=== PATIENT | male | born 1985 | race Caucasian/White ===

== ENCOUNTER 2019-07-20 08:37 | Inpatient (IN) | payer BC, OTHER ==
[~2019-07-20] VITALS: Ht 170.2 cm; Wt 69.1 kg
[~2019-07-20 08:37] MED LIST: INSULIN PUMP; SYN0.088T PO
[2019-07-20] MEDS ORDERED: ondansetron/PF 4mg/2ml inj IV ONE (08:50)
[2019-07-20] MEDS ORDERED: metoclopramide 5 mg/ml inj IV ONE (08:50)
[2019-07-20] MEDS ORDERED: morphine 4 MG/ML inj SYRINge IV ONE (08:50)
[2019-07-20] MEDS ORDERED: famotidine/PF 10 mg/ml inj IV ONE (08:50)
[2019-07-20] MEDS ORDERED: insulin regular, human vial - multi-dose IV PRN ×2 (08:50→10:20)
[2019-07-20] MEDS ORDERED: potassium CL 20mEq in D5-1/2NS 1,000 ML IV PRN ×2 (09:10→10:20)
[2019-07-20 09:11] LABS: ABG BASE EXCESS -15.2 mmol/L (-2.0-3.0); ABG HCO3 9.9 mmol/L (22.0-26.0); ABG OXYGEN SATURATION 97.9 % (95-98); ABG PCO2 (T) 22.9 mmHg (35.0-45.0); ABG PH (T) 7.255 (7.350-7.450); ABG PO2 (T) 124.7 mmHg (83-108); ALLEN'S TEST Positive; FCOHb 0.7 % (0.5-1.5); FMetHb 0.1 % (0.3-1.12); FO2Hb 97.1 % (94-100)
[2019-07-20 09:13] LABS: BASOPHILS # (AUTO) 0.1 X10'3 (0-0.2); BASOPHILS % (AUTO) 0.6 % (0-1); EOSINOPHILS # (AUTO) 0.1 X10'3 (0-0.9); EOSINOPHILS % (AUTO) 0.8 % (0-6); HEMATOCRIT 42.7 % (42.0-52.0); HEMOGLOBIN 14.4 g/dl (14.0-17.9); LYMPHOCYTES # (AUTO) 1.4 X10'3 (1.1-4.8); LYMPHOCYTES % (AUTO) 12.2 % (21-51); MEAN CORPUSCULAR HEMOGLOBIN 31.2 PG (27.0-31.0); MEAN CORPUSCULAR HGB CONC 33.8 g/dL (33.0-36.5); MEAN CORPUSCULAR VOLUME 92.4 FL (78-98); MEAN PLATELET VOLUME 10.6 FL (7.4-10.4); MONOCYTES # (AUTO) 0.2 X10'3 (0-0.9); NEUTROPHILS # (AUTO) 9.8 X10'3 (1.8-7.7); NEUTROPHILS % (AUTO) 84.4 % (42-75); PLATELET COUNT 215 X10'3 (140-440); RED BLOOD COUNT 4.61 X10'6 (4.70-6.10); RED CELL DISTRIBUTION WIDTH 12.6 % (11.5-14.5); WHITE BLOOD COUNT 11.6 X10'3 (4.5-11.0)
[2019-07-20] MEDS: normal saline 1000ml 1,000 ML IV SCH ×10 (09:19→20:50)
[2019-07-20] MEDS: insulin regular, human 10 units/0.1 ml syringe IV PRN ×2 (09:19→13:01)
[2019-07-20] MEDS ORDERED: insulin regular, DKA only 100 UNIT in normal saline 100ml IV soln 100 ML IV SCH ×4 (09:30→10:20)
[2019-07-20 09:32] LABS: ALANINE AMINOTRANSFERASE 39 U/L (12-78); ALBUMIN 4.1 G/DL (3.4-5.0); ALBUMIN/GLOBULIN RATIO 1.4 (1.1-1.5); ALKALINE PHOSPHATASE 118 IU/L (46-116); ANION GAP 23 (8-16); ASPARTATE AMINO TRANSFERASE 29 U/L (10-37); BILIRUBIN,TOTAL 0.8 MG/DL (0.1-1.0); BLOOD UREA NITROGEN 29 MG/DL (7-18); BUN/CREATININE RATIO 20.3 (5.4-32.0); CALCIUM 8.6 MG/DL (8.5-10.1); CHLORIDE 94 MMOL/L (99-107); CREATININE 1.43 MG/DL (0.60-1.10); LIPASE 57 U/L (73-393); POTASSIUM 4.7 MMOL/L (3.5-5.1); SODIUM 130 MMOL/L (135-145); TOTAL PROTEIN 7.1 G/DL (6.4-8.2); eGFR 57 ML/MIN
[2019-07-20 09:36] LABS: GLUCOSE 500 MG/DL (70-104); TOTAL CARBON DIOXIDE 13.3 MMOL/L (24-32)
[2019-07-20 09:49] LABS: CLARITY,URINE CLEAR (Clear); COLOR,URINE STRAW (Yellow); GLUCOSE, URINE >=1000 mg/dl (Neg); KETONES,URINE >=80 mg/dl (Neg); LEUKOCYTE ESTERASE ,URINE NEGATIVE (Neg); NITRITES, URINE NEGATIVE (Neg); OCCULT BLOOD,URINE NEGATIVE (Neg); PH,URINE 5.5 (4.8-8.0); PROTEIN,URINE NEGATIVE (Neg); UROBILINOGEN,URINE 0.2 E.U/dL (0.2-1.0)
[2019-07-20 09:50] LABS: UA COLLECTION TYPE URINAL
[2019-07-20] MEDS ORDERED: SYN0.088T PO (10:04)
[2019-07-20 10:10] LABS: BACTERIA,URINE NONE SEEN /HPF (Neg); MUCUS STRANDS NONE SEEN /LPF (Neg); RBC,URINE 0-2 /HPF (0-2); SQUAMOUS EPITHELIAL CELL,UR NONE SEEN /LPF (FEW); WBC,URINE NONE SEEN /HPF (0-4)
[2019-07-20] MEDS ORDERED: magnesium 4gm in 100ml NS 100 ML IV PRN (10:15)
[2019-07-20] MEDS ORDERED: magnesium 2GM in 50ml NS 50 ML IV PRN (10:15)
[2019-07-20] MEDS ORDERED: magnesium Cl slow-release 64mg tablet PO PRN (10:15)
[2019-07-20] MEDS ORDERED: ondansetron/PF 4mg/2ml inj IV PRN (10:15)
[2019-07-20] MEDS ORDERED: potassium CL 10mEq/100ml bag 100 ML IV PRN ×4 (10:15→10:20)
[2019-07-20] MEDS ORDERED: potassium Cl 20 mEq SR tablet PO PRN ×4 (10:15→10:20)
[2019-07-20] MEDS ORDERED: sodium bicarbonate (8.4%) inj. 100 MEQ in dextrose 5% water 500ml 500 ML IV PRN (10:20)
[2019-07-20] MEDS ORDERED: sodium bicarbonate (8.4%) inj. 50 MEQ in dextrose 5% water 500ml 250 ML IV PRN (10:20)
[2019-07-20] MEDS ORDERED: sodium phosphate inj. 15 MMOL in dextrose 5%-water 150 ML IV PRN (10:20)
[2019-07-20] MEDS ORDERED: normal saline 1000ml 1,000 ML IV SCH (10:20)
[2019-07-20] MEDS ORDERED: sodium phosphate inj. 30 MMOL in dextrose 5%-water 250 ML IV PRN (10:20)
[2019-07-20] MEDS ORDERED: Neutra Phos packet PO PRN (10:20)
[2019-07-20 10:59] LABS: ALBUMIN 3.4 G/DL (3.4-5.0); CALCIUM 7.7 MG/DL (8.5-10.1); CHLORIDE 103 MMOL/L (99-107); CREATININE 1.18 MG/DL (0.60-1.10); GLUCOSE 390 MG/DL (70-104); POTASSIUM 4.1 MMOL/L (3.5-5.1); eGFR 72 ML/MIN
[2019-07-20 11:04] LABS: ANION GAP 18 (8-16); BLOOD UREA NITROGEN 29 MG/DL (7-18); BUN/CREATININE RATIO 24.6 (5.4-32.0); SODIUM 135 MMOL/L (135-145)
[2019-07-20 11:05] LABS: TOTAL CARBON DIOXIDE 13.9 MMOL/L (24-32)
--- NOTE | 2019-07-20 14:32 | NUR ---
Pt. arrived and made comfortable. All questions answered and skin check complete. Insulin running @ 10u and D5 with K @ 150. Pt. does not have any complaints.
[2019-07-20 15:00] VITALS: BP 100/60
[2019-07-20 15:17] LABS: ALBUMIN 3.2 G/DL (3.4-5.0); ANION GAP 11 (8-16); BLOOD UREA NITROGEN 25 MG/DL (7-18); BUN/CREATININE RATIO 20.3 (5.4-32.0); CALCIUM 7.8 MG/DL (8.5-10.1); CHLORIDE 107 MMOL/L (99-107); CREATININE 1.23 MG/DL (0.60-1.10); GLUCOSE 211 MG/DL (70-104); PHOSPHORUS 2.8 MG/DL (2.3-4.5); POTASSIUM 3.7 MMOL/L (3.5-5.1); SODIUM 138 MMOL/L (135-145); TOTAL CARBON DIOXIDE 20.2 MMOL/L (24-32); eGFR 68 ML/MIN
--- NOTE | 2019-07-20 17:28 | NUR ---
PAGER ID: [phone] MESSAGE: [id number]. Labs looking a lot better. Do you want to try and let him eat? [id number]
--- NOTE | 2019-07-20 18:15 | NUR ---
Patient in room PCU 3012. I have received report from Gordon BA and had the opportunity to ask questions and assume patient care. GORDON WAITING FOR CALL BACK FROM MD REGARDING NEXT STEP FOR PATIENT, HE IS READY TO EAT. IVF RUNNING AT 200. GORDON CHECKED BLOOD SUGAR AT PT REQUEST, 71. (HAS NOT DOWNLOADED OF TIME OF NOTE ENTRY).
--- NOTE | 2019-07-20 18:23 | NUR ---
Problems reprioritized. Patient report given, questions answered & plan of care reviewed with Marybeth BA.
[2019-07-20 19:00] VITALS: BP 103/70
[2019-07-20 19:10] LABS: ALBUMIN 3.6 G/DL (3.4-5.0); ANION GAP 11 (8-16); BLOOD UREA NITROGEN 20 MG/DL (7-18); BUN/CREATININE RATIO 17.1 (5.4-32.0); CALCIUM 8.1 MG/DL (8.5-10.1); CHLORIDE 107 MMOL/L (99-107); CREATININE 1.17 MG/DL (0.60-1.10); GLUCOSE 106 MG/DL (70-104); POTASSIUM 3.9 MMOL/L (3.5-5.1); SODIUM 139 MMOL/L (135-145); TOTAL CARBON DIOXIDE 20.8 MMOL/L (24-32); eGFR 72 ML/MIN
[2019-07-20] MEDS ORDERED: insulin glargine (Lantus) pen - multi-dose SQ ONE (19:50)
[2019-07-20] MEDS: K and/or MAG REPLACEMENT MC SCH (20:00)
[2019-07-20] MEDS ORDERED: K and/or MAG REPLACEMENT MC SCH (20:00)
[2019-07-20] MEDS ORDERED: glucagon, human recombinant 1mg kit SUBCUT PRN (20:25)
[2019-07-20] MEDS ORDERED: dextrose ORAL solution 15 GM/59 ML bottle PO PRN ×2 (20:25)
[2019-07-20] MEDS ORDERED: dextrose 50%-water 50ml dispensing syringe IV PRN ×2 (20:25)
[2019-07-20] MEDS: insulin Lispro (HumaLOG) vial - multi-dose SQ SCH ×3 (21:18→23:24)
[2019-07-20 22:49] LABS: HEMOGLOBIN A1C 11.4 % (4.5-6.2)
[2019-07-20 23:00] VITALS: BP 111/67
[2019-07-21] MEDS: normal saline 1000ml 1,000 ML IV SCH ×3 (00:50→12:06)
[2019-07-21 03:00] VITALS: BP 114/77
[2019-07-21 05:17] LABS: BASOPHILS % (AUTO) 0.3 % (0-1); EOSINOPHILS # (AUTO) 0.2 X10'3 (0-0.9); EOSINOPHILS % (AUTO) 1.7 % (0-6); HEMATOCRIT 34.1 % (42.0-52.0); HEMOGLOBIN 11.9 g/dl (14.0-17.9); LYMPHOCYTES # (AUTO) 2.7 X10'3 (1.1-4.8); LYMPHOCYTES % (AUTO) 22.6 % (21-51); MEAN CORPUSCULAR HEMOGLOBIN 31.8 PG (27.0-31.0); MEAN CORPUSCULAR HGB CONC 34.8 g/dL (33.0-36.5); MEAN CORPUSCULAR VOLUME 91.3 FL (78-98); MEAN PLATELET VOLUME 10.1 FL (7.4-10.4); MONOCYTES # (AUTO) 0.6 X10'3 (0-0.9); MONOCYTES % (AUTO) 5.2 % (2-12); NEUTROPHILS # (AUTO) 8.5 X10'3 (1.8-7.7); NEUTROPHILS % (AUTO) 70.2 % (42-75); PLATELET COUNT 198 X10'3 (140-440); RED BLOOD COUNT 3.74 X10'6 (4.70-6.10); RED CELL DISTRIBUTION WIDTH 12.6 % (11.5-14.5); WHITE BLOOD COUNT 12.1 X10'3 (4.5-11.0)
[2019-07-21 05:30] LABS: ALBUMIN 2.8 G/DL (3.4-5.0); ANION GAP 9 (8-16); BLOOD UREA NITROGEN 15 MG/DL (7-18); CALCIUM 7.6 MG/DL (8.5-10.1); CHLORIDE 109 MMOL/L (99-107); GLUCOSE 215 MG/DL (70-104); MAGNESIUM 1.7 MG/DL (1.5-2.4); PHOSPHORUS 2.9 MG/DL (2.3-4.5); SODIUM 140 MMOL/L (135-145); TOTAL CARBON DIOXIDE 22.4 MMOL/L (24-32); eGFR 87 ML/MIN
--- NOTE | 2019-07-21 06:21 | NUR ---
Problems reprioritized. Patient report given, questions answered & plan of care reviewed with Magda AND Gordon rnS.
--- NOTE | 2019-07-21 06:40 | NUR ---
Patient in room PCU 3012. I have received report from Karina BA and had the opportunity to ask questions and assume patient care, patient is stable and resting at transfer.
--- NOTE | 2019-07-21 06:45 | NUR ---
Patient in room PCU 3012. I have received report from Karina BA and had the opportunity to ask questions and assume patient care. Patient awake and sitting at side of bed. All immediate needs met at this time.
[2019-07-21 07:00] VITALS: BP 112/78
[2019-07-21] MEDS: K and/or MAG REPLACEMENT MC SCH (08:00)
[2019-07-21] MEDS: insulin Lispro (HumaLOG) vial - multi-dose SQ SCH ×2 (10:31→13:39)
[2019-07-21 11:00] VITALS: BP 124/84
[2019-07-21] MEDS ORDERED: levoTHYROXINE 100mcg tablet PO SCH (12:40)
--- NOTE | 2019-07-21 14:35 | NUR ---
DM Consult: Pt admitted for DKA with A1c of 11.4. RD internet site designer visited pt at bedside and provided DM education with referral to CDE course and RD contact information. Pt reports A1c normally 10.5 or 11 and that elevated A1c is due to malfunctioning insulin pump. Pt states that he has a new insulin pump that he is going to get set up this week as he does not wish for DKA to occur again. Pt encouraged again to go to CDE course to get information to get his insulin pump set up. Pt reports gluten and lactose intolerance, not an allergy, however, he does feel ill if he eats too much gluten or lactose and wishes to stay away from it. Will continue to monitor. Addendum: 07/21/19 at 1436 by Wing Baldev FU Amended: Links added. Addendum: 07/21/19 at [address] RD agree with internet site designer note
--- NOTE | 2019-07-21 15:30 | NUR ---
Patient stable for discharge per MD orders. All discharge instructions reviewed with patient and all questions answered. Patient to follow up with PCP in 1 week. No new prescriptions for patient at this time. Patient to continue home medications per discharge. PIV x 2 discontinued and cannulas intact. Telemetry monitoring discontinued. All patient belongings packed up and sent with patient. Patient accompanied to lobby by RN. Patient will be picked up in lobby by mother.
== END 2019-07-21 15:30 | disposition home or self-care (01) | DRG 638 ==
LOC: ER 08:38 → ED HOLD 10:14 → PCU 3S 14:18
PROVIDERS: ADMIT Internal Medicine; ATTEND Internal Medicine
DX: E10.10 Type 1 diabetes mellitus with ketoacidosis without coma (principal); E87.1 Hypo-osmolality and hyponatremia; N17.9 Acute kidney failure, unspecified; E03.9 Hypothyroidism, unspecified; Z96.41 Presence of insulin pump (external) (internal); I95.9 Hypotension, unspecified; Z79.4 Long term (current) use of insulin; Z91.19 Patient's noncompliance with other medical treatment and regimen; Z88.8 Allergy status to other drugs, medicaments and biological substances
CPT/HCPCS: 36415; 36600; 80048; 80053; 81001; 82803; 82948; 83036; 83605; 83690; 83735; 84100; 85018; 85025; 87081; 93005; 96374; 96375; 99291; G0378; J1815; J2405; J2765; J3480; J3490; J7030

== ENCOUNTER 2021-05-08 01:27 | Emergency (ER) | payer OTHER ==
[~2021-05-08] VITALS: Ht 170.2 cm; Wt 71.4 kg
[2021-05-08 02:02] VITALS: BP 126/81
== END 2021-05-08 03:43 | disposition left against medical advice (07) ==
LOC: ER 01:27
DX: H92.01 Otalgia, right ear (principal); Z53.21 Procedure and treatment not carried out due to patient leaving prior to being seen by health care provider

== ENCOUNTER 2023-01-08 10:02 | Inpatient (IN) | payer OTHER ==
[2023-01-08] VITALS (9 sets, daily range): BP systolic 120–167; BP diastolic 78–94
[~2023-01-08] VITALS: Ht 170.2 cm; Wt 69.6 kg
[2023-01-08] MEDS ORDERED: metoclopramide 5 mg/ml inj IV ONE (10:10)
[2023-01-08] MEDS ORDERED: pantoprazole 40mg IV 80 MG in normal saline 100ml IV soln 100 ML IV ONE (10:10)
[2023-01-08] MEDS ORDERED: CefTRIAXone 2gm/D5W 50ml BAG 50 ML IV ONE (10:10)
[2023-01-08] MEDS ORDERED: normal saline 1000ML IV soln IV ONE (10:10)
[2023-01-08 10:43] LABS: BASOPHILS % (AUTO) 0.5 % (0-1); EOSINOPHILS # (AUTO) 0.3 X10'3 (0-0.9); LYMPHOCYTES # (AUTO) 1.1 X10'3 (1.1-4.8); LYMPHOCYTES % (AUTO) 15.2 % (21-51); MEAN CORPUSCULAR HEMOGLOBIN 32.1 PG (27.0-31.0); MEAN CORPUSCULAR HGB CONC 34.3 g/dL (33.0-36.5); MEAN CORPUSCULAR VOLUME 93.6 FL (78-98); MEAN PLATELET VOLUME 9.9 FL (7.4-10.4); MONOCYTES # (AUTO) 0.4 X10'3 (0-0.9); MONOCYTES % (AUTO) 5.9 % (2-12); NEUTROPHILS # (AUTO) 5.3 X10'3 (1.8-7.7); NEUTROPHILS % (AUTO) 74.4 % (42-75); PLATELET COUNT 138 X10'3 (140-440); RED BLOOD COUNT 1.89 X10'6 (4.70-6.10); RED CELL DISTRIBUTION WIDTH 13.4 % (11.5-14.5); WHITE BLOOD COUNT 7.2 X10'3 (4.5-11.0)
[2023-01-08 10:46] LABS: HEMATOCRIT 17.7 % (42.0-52.0); HEMOGLOBIN 6.1 g/dl (14.0-17.9)
[2023-01-08 11:00] LABS: BASOPHILS % (AUTO) 0.7 % (0-1); EOSINOPHILS # (AUTO) 0.3 X10'3 (0-0.9); EOSINOPHILS % (AUTO) 4.5 % (0-6); LYMPHOCYTES # (AUTO) 0.9 X10'3 (1.1-4.8); LYMPHOCYTES % (AUTO) 14.7 % (21-51); MEAN CORPUSCULAR HEMOGLOBIN 32.1 PG (27.0-31.0); MEAN CORPUSCULAR HGB CONC 34.3 g/dL (33.0-36.5); MEAN CORPUSCULAR VOLUME 93.5 FL (78-98); MEAN PLATELET VOLUME 10.2 FL (7.4-10.4); MONOCYTES # (AUTO) 0.4 X10'3 (0-0.9); NEUTROPHILS # (AUTO) 4.7 X10'3 (1.8-7.7); NEUTROPHILS % (AUTO) 74.1 % (42-75); PLATELET COUNT 130 X10'3 (140-440); RED BLOOD COUNT 1.76 X10'6 (4.70-6.10); RED CELL DISTRIBUTION WIDTH 13.5 % (11.5-14.5); WHITE BLOOD COUNT 6.4 X10'3 (4.5-11.0)
[2023-01-08 11:00] LABS: ANION GAP 12 (8-16); CHLORIDE 113 MMOL/L (99-107); POTASSIUM 4.4 MMOL/L (3.5-5.1); SODIUM 145 MMOL/L (135-145)
[2023-01-08 11:07] LABS: HEMOGLOBIN 5.7 g/dl (14.0-17.9)
[2023-01-08 11:08] LABS: HEMATOCRIT 16.8 % (42.0-52.0)
[2023-01-08 11:11] LABS: ALANINE AMINOTRANSFERASE 32 U/L (12-78); ALBUMIN 3.1 G/DL (3.4-5.0); ALBUMIN/GLOBULIN RATIO 1.1 (1.1-1.5); ALKALINE PHOSPHATASE 100 IU/L (46-116); ASPARTATE AMINO TRANSFERASE 30 U/L (10-37); BILIRUBIN,TOTAL 0.4 MG/DL (0.1-1.0); BLOOD UREA NITROGEN 29 MG/DL (7-18); BUN/CREATININE RATIO 11.5 (10.0-20.0); CALCIUM 8.2 MG/DL (8.5-10.1); CREATININE 2.53 MG/DL (0.60-1.10); GLUCOSE 98 MG/DL (70-104); eGFR 29 ML/MIN
[2023-01-08 11:28] LABS: CLARITY,URINE CLEAR (Clear); COLOR,URINE YELLOW (Yellow); GLUCOSE, URINE 100 mg/dl (Neg); KETONES,URINE NEGATIVE (Neg); LEUKOCYTE ESTERASE ,URINE NEGATIVE (Neg); NITRITES, URINE NEGATIVE (Neg); OCCULT BLOOD,URINE SMALL (Neg); PH,URINE 5.5 (4.8-8.0); PROTEIN,URINE >=300 mg/dl (Neg); UROBILINOGEN,URINE 0.2 E.U/dL (0.2-1.0)
[2023-01-08 11:31] LABS: UA COLLECTION TYPE CLN CATCH MIDSTREAM
[2023-01-08 11:41] LABS: BACTERIA,URINE NONE SEEN /HPF (Neg); MUCUS STRANDS FEW /LPF (Neg); RBC,URINE 0-2 /HPF (0-2); SPERM FEW /HPF (NEGATIVE); SQUAMOUS EPITHELIAL CELL,UR FEW /LPF (FEW); WBC,URINE 0-4 /HPF (0-4)
[2023-01-08] MEDS: pantoprazole 40MG/NS 100ML BAG 100 ML IV SCH ×3 (11:56→21:10)
[2023-01-08] MEDS ORDERED: potassium Cl 20 mEq SR tablet PO PRN ×2 (12:50)
[2023-01-08] MEDS ORDERED: insulin Lispro (HumaLOG) vial - multi-dose SQ SCH (12:50)
[2023-01-08] MEDS ORDERED: acetaminophen 650mg rectal suppository RC PRN (12:50)
[2023-01-08] MEDS ORDERED: diphenhydrAMINE 25mg capsule PO PRN (12:50)
[2023-01-08] MEDS ORDERED: bisacodyl 10mg suppository rectal RC PRN (12:50)
[2023-01-08] MEDS ORDERED: HYDROcodone/acetaminophen 5mg/325mg tablet PO PRN (12:50)
[2023-01-08] MEDS ORDERED: ondansetron 4mg rapidly disintigrating tab PO PRN (12:50)
[2023-01-08] MEDS ORDERED: potassium Cl 40MEQ/1/2NS 520ml 520 ML IV PRN (12:50)
[2023-01-08] MEDS ORDERED: mag hydrox/Alum hydrox/simeth 30ml oral suspension PO PRN (12:50)
[2023-01-08] MEDS ORDERED: HYDROcodone/acetaminophen 10/325mg tab PO PRN (12:50)
[2023-01-08] MEDS ORDERED: acetaminophen 325mg tablet PO PRN ×2 (12:50)
[2023-01-08] MEDS ORDERED: MESSAGE TO PHARMACY PO ONE (12:50)
[2023-01-08] MEDS ORDERED: dextrose 50%-water 50ml dispensing syringe IV PRN ×2 (12:50)
[2023-01-08] MEDS ORDERED: magnesium Cl slow-release 64mg tablet PO PRN (12:50)
[2023-01-08] MEDS ORDERED: pantoprazole 40MG/NS 100ML BAG 100 ML IV SCH (12:50)
[2023-01-08] MEDS ORDERED: DEXTROSE 15 GM of carb/4 tabs (each vial/BOTTLE has 4 tablets) PO PRN ×2 (12:50)
[2023-01-08] MEDS ORDERED: ondansetron/PF 4mg/2ml inj IV PRN (12:50)
[2023-01-08] MEDS ORDERED: glucagon, human recombinant 1mg kit SUBCUT PRN (12:50)
[2023-01-08] MEDS ORDERED: magnesium 4gm in 100ml NS 100 ML IV PRN (12:50)
[2023-01-08] MEDS ORDERED: morphine 2 MG/ML inj. syringe IV PRN ×2 (12:50)
[2023-01-08] MEDS ORDERED: magnesium 2GM in 50ml NS 50 ML IV PRN (12:50)
[2023-01-08] MEDS ORDERED: magnesium hydroxide 30ml (MOM) UD suspension PO PRN (12:50)
[2023-01-08] MEDS: sodium chloride 0.45% 1,000 ML IV SCH ×2 (12:50→23:10)
[2023-01-08] MEDS ORDERED: HYDR25TA4 PO (13:06)
[2023-01-08] MEDS ORDERED: INSU100C4 SUBCUT (13:06)
[2023-01-08 13:25] LABS: HEMOGLOBIN A1C 6.1 % (4.5-6.2)
[2023-01-08 13:31] LABS: CHOL/HDL RATIO 3.9 (0.00-4.99); CHOLESTEROL 135 MG/DL (0-200); HDL CHOLESTEROL 35 MG/DL (35-60); LDL CHOLESTEROL 73 MG/DL (50-100); TRIGLYCERIDES 80 MG/DL (20-135)
--- NOTE | 2023-01-08 15:27 | NUR ---
Second unit of 0- blood started to transfuse.
[2023-01-08] MEDS ORDERED: HYDR12.55 PO (16:07)
[2023-01-08] MEDS ORDERED: LEVO200T8 PO (16:07)
--- NOTE | 2023-01-08 17:02 | NUR ---
insulin pump disconnected and removed by patient .
--- NOTE | 2023-01-08 18:30 | NUR ---
Problems reprioritized. Patient report given, questions answered & plan of care reviewed with Lena BA. Patient is resting comfortably in bed in no acute distress.
--- NOTE | 2023-01-08 18:30 | NUR ---
Received report from primary care nurse Marisol BA. Patient is awake and alert on room air. In no apparent distress. Call light and items of frequent use within reach. Will continue to monitor for changes.
[2023-01-08] MEDS ORDERED: hydrALAZINE 20mg/ml inj. IV PRN (19:55)
[2023-01-08] MEDS: K and/or MAG REPLACEMENT MC SCH (20:00)
[2023-01-08] MEDS: docusate sod 100mg capsule PO SCH (20:00)
--- NOTE | 2023-01-08 20:00 | NUR ---
Patient reporting he wants to keep his insulin pump. Obtained agreement and phoned MD Villarreal. Obtained orders.
[2023-01-08] MEDS: insulin glargine (Lantus) pen - multi-dose SQ SCH (21:00)
--- NOTE | 2023-01-08 21:19 | NUR ---
patient self administered 2units with insulin pump Addendum: 01/08/23 at 2119 by Lena Palma RN Amended: Links added.
[2023-01-08 21:31] LABS: HEMATOCRIT 23.9 % (42.0-52.0); HEMOGLOBIN 8.1 g/dl (14.0-17.9); MEAN CORPUSCULAR HEMOGLOBIN 31.2 PG (27.0-31.0); MEAN CORPUSCULAR VOLUME 91.5 FL (78-98); MEAN PLATELET VOLUME 9.8 FL (7.4-10.4); PLATELET COUNT 137 X10'3 (140-440); RED BLOOD COUNT 2.61 X10'6 (4.70-6.10); RED CELL DISTRIBUTION WIDTH 14.2 % (11.5-14.5); WHITE BLOOD COUNT 9.5 X10'3 (4.5-11.0)
[2023-01-09] VITALS (9 sets, daily range): BP systolic 122–176; BP diastolic 78–110
[2023-01-09] MEDS: pantoprazole 40MG/NS 100ML BAG 100 ML IV SCH ×4 (01:51→16:00)
--- NOTE | 2023-01-09 06:32 | NUR ---
Reported off to Mary Ellen BA. Patient is awake and alert playing on his phone. In no apparent distress on room air. Call light and items of frequent use within reach.
[2023-01-09 07:06] LABS: BASOPHILS # (AUTO) 0.1 X10'3 (0-0.2); BASOPHILS % (AUTO) 0.6 % (0-1); EOSINOPHILS # (AUTO) 0.2 X10'3 (0-0.9); EOSINOPHILS % (AUTO) 2.6 % (0-6); HEMATOCRIT 22.1 % (42.0-52.0); HEMOGLOBIN 7.6 g/dl (14.0-17.9); LYMPHOCYTES # (AUTO) 1.1 X10'3 (1.1-4.8); LYMPHOCYTES % (AUTO) 12.6 % (21-51); MEAN CORPUSCULAR HEMOGLOBIN 31.6 PG (27.0-31.0); MEAN CORPUSCULAR HGB CONC 34.4 g/dL (33.0-36.5); MEAN CORPUSCULAR VOLUME 91.7 FL (78-98); MEAN PLATELET VOLUME 9.8 FL (7.4-10.4); MONOCYTES # (AUTO) 0.4 X10'3 (0-0.9); MONOCYTES % (AUTO) 4.8 % (2-12); NEUTROPHILS # (AUTO) 6.8 X10'3 (1.8-7.7); NEUTROPHILS % (AUTO) 79.4 % (42-75); PLATELET COUNT 129 X10'3 (140-440); RED BLOOD COUNT 2.41 X10'6 (4.70-6.10); RED CELL DISTRIBUTION WIDTH 14.2 % (11.5-14.5); WHITE BLOOD COUNT 8.5 X10'3 (4.5-11.0)
[2023-01-09 07:23] LABS: ALANINE AMINOTRANSFERASE 23 U/L (12-78); ALBUMIN 2.6 G/DL (3.4-5.0); ALKALINE PHOSPHATASE 88 IU/L (46-116); ANION GAP 12 (8-16); ASPARTATE AMINO TRANSFERASE 23 U/L (10-37); BILIRUBIN,TOTAL 0.5 MG/DL (0.1-1.0); BLOOD UREA NITROGEN 22 MG/DL (7-18); BUN/CREATININE RATIO 10.2 (10.0-20.0); CALCIUM 7.7 MG/DL (8.5-10.1); CHLORIDE 114 MMOL/L (99-107); CHOL/HDL RATIO 3.8 (0.00-4.99); CHOLESTEROL 117 MG/DL (0-200); CREATININE 2.15 MG/DL (0.60-1.10); GLUCOSE 207 MG/DL (70-104); HDL CHOLESTEROL 31 MG/DL (35-60); LDL CHOLESTEROL 64 MG/DL (50-100); MAGNESIUM 1.7 MG/DL (1.5-2.4); PHOSPHORUS 3.5 MG/DL (2.3-4.5); POTASSIUM 4.4 MMOL/L (3.5-5.1); SODIUM 143 MMOL/L (135-145); TOTAL CARBON DIOXIDE 16.7 MMOL/L (24-32); TOTAL PROTEIN 5.2 G/DL (6.4-8.2); TRIGLYCERIDES 101 MG/DL (20-135); eGFR 35 ML/MIN
[2023-01-09] MEDS: sodium chloride 0.45% 1,000 ML IV SCH (07:55)
[2023-01-09] MEDS: K and/or MAG REPLACEMENT MC SCH ×2 (08:00→20:14)
[2023-01-09] MEDS: docusate sod 100mg capsule PO SCH ×2 (08:00→20:00)
[2023-01-09] MEDS ORDERED: fentaNYL/PF 50MCG/1 ML 2ML syringe ONE (08:36)
[2023-01-09] MEDS ORDERED: MIDAZolam 1 MG/ML 5ML VIAL ONE (08:37)
[2023-01-09] MEDS ORDERED: LIDOcaine Viscous 15ml cup ONE (08:37)
--- NOTE | 2023-01-09 08:45 | NUR ---
DM consult: Per EMR pt with T1DM, well controlled with A1c 6.1% which is down from 11.4% 07/20/19 per EMR. 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 DM education not warranted at this time. Will continue to follow. Addendum: 01/09/23 at [address] Amended: Links added.
[2023-01-09] MEDS ORDERED: hydrALAZINE 20mg/ml inj. IV ONE (15:10)
[2023-01-09] MEDS ORDERED: hydrALAZINE 20mg/ml inj. IV PRN (15:10)
[2023-01-09] MEDS ORDERED: PEG 3350/Na sulf,bicarb,Cl/KCl oral sol 4 liter bottle PO ONE (15:15)
[2023-01-09] MEDS: amLODIPine 5mg tablet PO SCH (15:36)
[2023-01-09] MEDS: normal saline 1000ml 1,000 ML IV SCH (15:36)
[2023-01-09 15:48] LABS: HEMATOCRIT 22.2 % (42.0-52.0); HEMOGLOBIN 7.7 g/dl (14.0-17.9); MEAN CORPUSCULAR HEMOGLOBIN 31.9 PG (27.0-31.0); MEAN CORPUSCULAR HGB CONC 34.7 g/dL (33.0-36.5); MEAN CORPUSCULAR VOLUME 91.7 FL (78-98); MEAN PLATELET VOLUME 9.6 FL (7.4-10.4); PLATELET COUNT 128 X10'3 (140-440); RED BLOOD COUNT 2.42 X10'6 (4.70-6.10); RED CELL DISTRIBUTION WIDTH 13.9 % (11.5-14.5); WHITE BLOOD COUNT 7.7 X10'3 (4.5-11.0)
--- NOTE | 2023-01-09 18:52 | NUR ---
Problems reprioritized. Patient report given, questions answered & plan of care reviewed with JESENIA MARTINEZ.
[2023-01-09] MEDS: insulin glargine (Lantus) pen - multi-dose SQ SCH (20:15)
--- NOTE | 2023-01-09 22:18 | NUR ---
Pt reports he is starting to poop clear. (Taking [employer] for Colonospony in AM)
[2023-01-10] VITALS (7 sets, daily range): BP systolic 131–155; BP diastolic 82–94
[2023-01-10] MEDS: normal saline 1000ml 1,000 ML IV SCH ×2 (01:45→11:10)
[2023-01-10 06:16] LABS: BASOPHILS % (AUTO) 0.4 % (0-1); EOSINOPHILS # (AUTO) 0.3 X10'3 (0-0.9); EOSINOPHILS % (AUTO) 4.5 % (0-6); HEMOGLOBIN 7.2 g/dl (14.0-17.9); LYMPHOCYTES % (AUTO) 15.6 % (21-51); MEAN CORPUSCULAR HEMOGLOBIN 31.6 PG (27.0-31.0); MEAN CORPUSCULAR HGB CONC 34.4 g/dL (33.0-36.5); MEAN CORPUSCULAR VOLUME 91.7 FL (78-98); MEAN PLATELET VOLUME 9.7 FL (7.4-10.4); MONOCYTES # (AUTO) 0.4 X10'3 (0-0.9); MONOCYTES % (AUTO) 6.4 % (2-12); NEUTROPHILS # (AUTO) 4.7 X10'3 (1.8-7.7); NEUTROPHILS % (AUTO) 73.1 % (42-75); PLATELET COUNT 119 X10'3 (140-440); RED BLOOD COUNT 2.27 X10'6 (4.70-6.10); RED CELL DISTRIBUTION WIDTH 14.1 % (11.5-14.5); WHITE BLOOD COUNT 6.5 X10'3 (4.5-11.0)
--- NOTE | 2023-01-10 06:29 | NUR ---
Problems reprioritized. Patient report given, questions answered & plan of care reviewed with Leo.
[2023-01-10 06:30] LABS: HEMATOCRIT 20.9 % (42.0-52.0)
[2023-01-10 06:35] LABS: ALANINE AMINOTRANSFERASE 22 U/L (12-78); ALBUMIN 2.5 G/DL (3.4-5.0); ALBUMIN/GLOBULIN RATIO 1.1 (1.1-1.5); ALKALINE PHOSPHATASE 84 IU/L (46-116); ANION GAP 10 (8-16); ASPARTATE AMINO TRANSFERASE 30 U/L (10-37); BILIRUBIN,TOTAL 0.4 MG/DL (0.1-1.0); BLOOD UREA NITROGEN 22 MG/DL (7-18); BUN/CREATININE RATIO 10.5 (10.0-20.0); CALCIUM 7.7 MG/DL (8.5-10.1); CHLORIDE 114 MMOL/L (99-107); GLUCOSE 159 MG/DL (70-104); MAGNESIUM 1.7 MG/DL (1.5-2.4); PHOSPHORUS 2.9 MG/DL (2.3-4.5); POTASSIUM 4.5 MMOL/L (3.5-5.1); SODIUM 143 MMOL/L (135-145); TOTAL CARBON DIOXIDE 18.8 MMOL/L (24-32); TOTAL PROTEIN 4.8 G/DL (6.4-8.2); eGFR 36 ML/MIN
[2023-01-10] MEDS ORDERED: levoTHYROXINE 75mcg tablet PO SCH (07:00)
--- NOTE | 2023-01-10 07:04 | NUR ---
PT LEFT VIA AMBULATING WITH GI RN TO GI LAB FOR HIS COLONOSCOPY - VSS A/OX4
[2023-01-10] MEDS ORDERED: MIDAZolam 1 MG/ML 5ML VIAL ONE (07:19)
[2023-01-10] MEDS ORDERED: fentaNYL/PF 50MCG/1 ML 2ML syringe ONE (07:19)
[2023-01-10] MEDS ORDERED: pantoprazole 40mg Tablet.DR PO SCH (07:30)
[2023-01-10] MEDS: docusate sod 100mg capsule PO SCH (08:00)
[2023-01-10] MEDS: amLODIPine 5mg tablet PO SCH ×2 (08:00→10:28)
[2023-01-10] MEDS: K and/or MAG REPLACEMENT MC SCH (08:00)
--- NOTE | 2023-01-10 10:00 | NUR ---
PT BACK FROM GI LAB. COLONOSCOPY DID NOT SHOW SOURCE OF BLEEDING. PT TOLERATED PROCEDURE WELL AND IS CURRENTLY SITTING UP IN CHAIR EATING OATMEAL. PT WITH CONCERNS FOR HIS KIDNEY FUNCTION, IS EAGER TO SPEAK WITH ATTENDING MD. ATTENDING WILL BE MAKING ROUNDS THIS MORNING. WILL CONTINUE TO CLOSELY MONITOR
[2023-01-10] MEDS ORDERED: NOR5T PO (12:07)
[2023-01-10] MEDS ORDERED: PANT40TA54 PO (12:07)
[2023-01-10] MEDS ORDERED: LEVO75TA7 PO (12:07)
[2023-01-10] MEDS ORDERED: FERR325T32 PO (12:10)
[2023-01-10] MEDS ORDERED: VITC500T PO (12:10)
--- NOTE | 2023-01-10 14:30 | NUR ---
PT DISCHARGED TO HOME. ALL DC INSTRUCTIONS EXPLAINED TO ASHLEE AND HIS SIGNIFIGANT OTHER WITH BOTH VERBALIZING UNDERSTANDING REGARDING PLAN OF CARE. PT WILL BE FOLLOWING UP WITH SHABANA SALVADOR WHO MANAGES HIS CARE ABDIAZIZ. HE HAS ORDERS TO HAVE FOLLOW UP LABWORK PERFORMED AND TO HAVE RESULTS FAXED TO SHABANA SALVADOR [facility] IN RELATION TO HIS H&H AND KIDNEY FUNCTION. PT TO ALSO FOLLOW UP WITH DR FREIRE, GI MD WHO PERFORMED HIS UPPER AND LOWER GI SCOPING. NOTHING SIGNIFIGANT WAS FOUND BUT DR FREIRE WANTS TO SEE PATIENT IN HER OFFICE WITHIN 1-2 WEEKS. PT HAS NEW MEDICATIONS HE WAS COUNSELED ON AND VERBALIZES UNDERSTANDING. PT LEFT WALKING ON FOOT, PER PT REQUEST TO HOME WITH SIGNIFIGANT OTHER. PT IS CONTROLLING HIS BLOOD SUGARS, HE DELIVERED HIS OWN INSULIN DURING HIS STAY PER MD ORDER.
== END 2023-01-10 14:49 | disposition home or self-care (01) | DRG 811 ==
LOC: ER 10:02 → ED HOLD 12:54 → EDBEDREQ 15:20 → PCU 3S 16:18
PROVIDERS: ADMIT Family Medicine; ATTEND Family Medicine
PROC: 30233N1 Transfusion of Nonautologous Red Blood Cells into Peripheral Vein, Percutaneous Approach (ICD-10-PCS; 2023-01-08)
PROC: 0DB98ZX Excision of Duodenum, Via Natural or Artificial Opening Endoscopic, Diagnostic (ICD-10-PCS; principal; 2023-01-09)
PROC: 0DB78ZX Excision of Stomach, Pylorus, Via Natural or Artificial Opening Endoscopic, Diagnostic (ICD-10-PCS; 2023-01-09)
PROC: 0DJD8ZZ Inspection of Lower Intestinal Tract, Via Natural or Artificial Opening Endoscopic (ICD-10-PCS; 2023-01-10)
DX: D50.0 Iron deficiency anemia secondary to blood loss (chronic) (principal); N17.0 Acute kidney failure with tubular necrosis; K92.2 Gastrointestinal hemorrhage, unspecified; E86.0 Dehydration; K21.9 Gastro-esophageal reflux disease without esophagitis; E10.9 Type 1 diabetes mellitus without complications; I10 Essential (primary) hypertension; Z96.41 Presence of insulin pump (external) (internal); Z88.0 Allergy status to penicillin; Z91.011 Allergy to milk products; Z91.018 Allergy to other foods
CPT/HCPCS: 36415; 36430; 43239; 45378; 71045; 80053; 80061; 81001; 82948; 83036; 83735; 84100; 84145; 84439; 84443; 85025; 85027; 85610; 86885; 86900; 86901; 86920; 87081; 99152; 99153; 99285; A4620; C9113; G0378; J0360; J0696; J1815; J2250; J2765; J3010; J3490; J7030; P9016

== ENCOUNTER 2024-02-04 11:38 | Day surgery (SDC) | payer OTHER ==
[2024-01-31 11:06] LABS: BASOPHILS # (AUTO) 0.1 X10'3 (0-0.2); BASOPHILS % (AUTO) 1.3 % (0-1); EOSINOPHILS # (AUTO) 0.3 X10'3 (0-0.9); EOSINOPHILS % (AUTO) 3.4 % (0-6); HEMATOCRIT 38.4 % (42.0-52.0); HEMOGLOBIN 12.4 g/dl (14.0-17.9); LYMPHOCYTES # (AUTO) 0.7 X10'3 (1.1-4.8); LYMPHOCYTES % (AUTO) 8.1 % (21-51); MEAN CORPUSCULAR HEMOGLOBIN 29.6 PG (27.0-31.0); MEAN CORPUSCULAR HGB CONC 32.3 g/dL (33.0-36.5); MEAN CORPUSCULAR VOLUME 91.8 FL (78-98); MEAN PLATELET VOLUME 8.7 FL (7.4-10.4); MONOCYTES # (AUTO) 0.6 X10'3 (0-0.9); MONOCYTES % (AUTO) 7.8 % (2-12); NEUTROPHILS # (AUTO) 6.4 X10'3 (1.8-7.7); NEUTROPHILS % (AUTO) 79.4 % (42-75); PLATELET COUNT 227 X10'3 (140-440); RED BLOOD COUNT 4.18 X10'6 (4.70-6.10); RED CELL DISTRIBUTION WIDTH 15.7 % (11.5-14.5); WHITE BLOOD COUNT 8.1 X10'3 (4.5-11.0)
[2024-01-31 11:11] LABS: APTT 31 SECONDS (22-32); INR 1.1 INR; PROTHROMBIN TIME 11.9 SECONDS (9.0-12.0)
[2024-01-31 11:29] LABS: ALBUMIN 2.5 G/DL (3.4-5.0); ANION GAP 14 (8-16); BLOOD UREA NITROGEN 64 MG/DL (7-18); BUN/CREATININE RATIO 4.2 (10.0-20.0); CALCIUM 8.2 MG/DL (8.5-10.1); CHLORIDE 100 MMOL/L (99-107); CHOL/HDL RATIO 3.5 (0.00-4.99); CHOLESTEROL 147 MG/DL (0-200); CREATININE 15.22 MG/DL (0.60-1.10); GLUCOSE 153 MG/DL (70-104); HDL CHOLESTEROL 42 MG/DL (35-60); LDL CHOLESTEROL 91 MG/DL (50-100); SODIUM 136 MMOL/L (135-145); TOTAL CARBON DIOXIDE 22.1 MMOL/L (24-32); TRIGLYCERIDES 55 MG/DL (20-135); eGFR 4 ML/MIN
[~2024-02-04] VITALS: Ht 170.2 cm; Wt 74.8 kg
[~2024-02-04 11:38] MED LIST changes: +FERR325T32 PO; +INSU100C4 SUBCUT; -INSULIN PUMP; +LEVO75TA7 PO; +NOR5T PO; +PANT40TA54 PO; -SYN0.088T PO
[2024-02-04] MEDS ORDERED: LOSA50TA64 PO (12:13)
[2024-02-04] MEDS ORDERED: CARV12.5 PO (12:13)
[2024-02-04] MEDS ORDERED: LEVO200T PO (12:13)
[2024-02-04] MEDS ORDERED: SODI650T29 PO (12:13)
[2024-02-04] MEDS ORDERED: METO5TAB98 PO (12:13)
[2024-02-04] MEDS ORDERED: CARV-49 PO (12:13)
[2024-02-04] MEDS ORDERED: PHO667C PO (12:13)
[2024-02-04] MEDS ORDERED: CLON0.1T2 PO (12:17)
[2024-02-04] MEDS: diphenhydrAMINE 25mg capsule PO PRN (13:40)
[2024-02-04] MEDS: LORazepam 0.5 MG tablet PO PRN (13:40)
[2024-02-04] MEDS: normal saline 1,000 ML IV SCH (13:40)
[2024-02-04] MEDS ORDERED: midazolam 1 mg/ML 2ml injection ONE ×2 (14:12→14:44)
[2024-02-04] MEDS ORDERED: LIDOcaine 1% (10mg/ml) 2ml vial ONE (14:12)
[2024-02-04] MEDS ORDERED: iohexol 350MG/ML 100ml bottle IV ONE (14:12)
[2024-02-04] MEDS ORDERED: verapamil 2.5 mg/ml inj IV ONE (14:12)
[2024-02-04] MEDS ORDERED: fentaNYL/PF 50MCG/1 ML 2ML syringe ONE (14:12)
[2024-02-04] MEDS ORDERED: heparin 1,000unit/ml 10ml vial 10 ML ONE (14:12)
[2024-02-04] MEDS ORDERED: nitroGLYCERIN 500mcg/5mL D5W 5 ML IV ONE (14:13)
[2024-02-04] MEDS ORDERED: LIDOcaine 1% 30ml preserv. free vial ONE (14:48)
[2024-02-04 15:20] VITALS: BP 178/99; PULSE 70; RESP 15; O2SAT 99
[2024-02-04 15:34] VITALS: BP 176/97; PULSE 72; RESP 13; O2SAT 98
[2024-02-04 15:50] VITALS: BP 170/99; PULSE 77; RESP 12; O2SAT 98
[2024-02-04 16:04] VITALS: BP 188/92; PULSE 72; RESP 17; O2SAT 96
[2024-02-04 16:19] VITALS: BP 187/96; PULSE 77; RESP 14; O2SAT 95
[2024-02-04 16:34] VITALS: BP 185/91; PULSE 76; RESP 15; O2SAT 94
== END 2024-02-04 17:20 | disposition home or self-care (01) ==
LOC: SSTAY O 11:38
PROVIDERS: ATTEND Student in an Organized Health Care Education/Training Program
DX: I12.0 Hypertensive chronic kidney disease with stage 5 chronic kidney disease or end stage renal disease (principal); E11.22 Type 2 diabetes mellitus with diabetic chronic kidney disease; N18.6 End stage renal disease; I25.10 Atherosclerotic heart disease of native coronary artery without angina pectoris; E78.5 Hyperlipidemia, unspecified; Z88.0 Allergy status to penicillin
CPT/HCPCS: 36415; 80048; 80061; 82948; 85025; 85610; 85730; 93005; 93458; 99152; 99153; J1644; J2250; J3010; J3490; J7030; Q0163; Q9967; C1760; C1894

== ENCOUNTER → 2024-11-30 | Outpatient (CLI) | payer OTHER ==
[~2024-11-30] MED LIST changes: +CARV-49 PO; +CARV12.5 PO; +CLON0.1T2 PO; -FERR325T32 PO; +LEVO200T PO; -LEVO75TA7 PO; +LOSA50TA64 PO; +METO5TAB98 PO; -NOR5T PO; -PANT40TA54 PO; +PHO667C PO; +SODI650T29 PO
[2024-11-30 11:07] LABS: BASOPHILS # (AUTO) 0.1 X10'3 (0-0.2); BASOPHILS % (AUTO) 0.6 % (0-1); EOSINOPHILS # (AUTO) 0.7 X10'3 (0-0.9); EOSINOPHILS % (AUTO) 6.1 % (0-6); HEMOGLOBIN 8.8 g/dl (14.0-17.9); LYMPHOCYTES # (AUTO) 1.5 X10'3 (1.1-4.8); LYMPHOCYTES % (AUTO) 12.7 % (21-51); MEAN CORPUSCULAR HEMOGLOBIN 28.4 PG (27.0-31.0); MEAN CORPUSCULAR HGB CONC 31.5 g/dL (33.0-36.5); MEAN CORPUSCULAR VOLUME 90.2 FL (78-98); MEAN PLATELET VOLUME 9.4 FL (7.4-10.4); MONOCYTES # (AUTO) 0.6 X10'3 (0-0.9); MONOCYTES % (AUTO) 5.1 % (2-12); NEUTROPHILS % (AUTO) 75.5 % (42-75); PLATELET COUNT 331 X10'3 (140-440); RED BLOOD COUNT 3.11 X10'6 (4.70-6.10); RED CELL DISTRIBUTION WIDTH 20.2 % (11.5-14.5)
[2024-11-30 11:16] LABS: ALANINE AMINOTRANSFERASE 76 U/L (12-78); ALBUMIN 2.6 G/DL (3.4-5.0); ALBUMIN/GLOBULIN RATIO 0.8 (1.1-1.5); ALKALINE PHOSPHATASE 281 IU/L (46-116); ANION GAP 12 (8-16); ASPARTATE AMINO TRANSFERASE 41 U/L (10-37); BILIRUBIN,TOTAL 0.3 MG/DL (0.1-1.0); BLOOD UREA NITROGEN 21 MG/DL (7-18); BUN/CREATININE RATIO 16.3 (10.0-20.0); C-REACTIVE PROTEIN 5.91 MG/DL (0.0-0.5); CALCIUM 8.4 MG/DL (8.5-10.1); CHLORIDE 113 MMOL/L (99-107); CREATINE KINASE 102 U/L (39-308); CREATININE 1.29 MG/DL (0.60-1.10); GLUCOSE 132 MG/DL (70-104); POTASSIUM 4.4 MMOL/L (3.5-5.1); SODIUM 141 MMOL/L (135-145); TOTAL CARBON DIOXIDE 16.2 MMOL/L (24-32); TOTAL PROTEIN 5.8 G/DL (6.4-8.2); eGFR 63 ML/MIN
[2024-11-30 12:09] LABS: PLATELET ESTIMATE NORMAL
[2024-11-30 12:10] LABS: ANISOCYTOSIS 3+; ELLIPTOCYTES FEW; HYPOCHROMASIA 1+
== END | disposition home or self-care (01) ==
LOC: LAB 10:41
PROVIDERS: ATTEND Dietitian, Registered
DX: A41.59 Other Gram-negative sepsis (principal)
CPT/HCPCS: 36415; 80053; 82550; 85008; 85025; 85651; 86140